=== PATIENT | female | born 2005 ===

== ENCOUNTER 2025-09-01 06:56 | Outpatient (REF) | payer BC, SELFPAY ==
--- NOTE | ~2025-09-01 | US_ITS ---
EXAMINATION: US PELVIS CLINICAL INFORMATION: Irregular bleeding for 3 weeks. IUD COMPARISON: None available. TECHNIQUE: Ultrasound of the pelvis is performed using both transabdominal and transvaginal transducers along with Doppler. Transvaginal imaging is performed due to inadequate visualization transabdominally. FINDINGS: Uterus: The uterus is anteversion flexion and measures 7 x 3 x 4 cm. Volume: 39 cc. Cervix is normal. The double wall endometrial thickness is 2 mm. No soft tissue lesions in the myometrium. Normal position of the intrauterine contraceptive device from the fundus to the body. Adnexa: The ovaries are identified with normal flow on color Doppler interrogation.. No gross solid or cystic lesion. No free fluid in the cul-de-sac. Right ovary measures 3 x 3 x 2 cm. Volume: 9 cc. Left ovary measures 4 x 2 x 2 cm. Volume: 7 cc. US/US pelvic and transvaginal IMPRESSION: Normal position of the intrauterine contraceptive device. Normal pelvic ultrasound. Electronically signed by: Chandrakant Mera MD 09/01/2025 11:33 AM [facility]
== END 2025-09-01 06:57 | disposition home or self-care (01) ==
LOC: HO.UMASIMG 06:56
PROVIDERS: Visit Provider Nurse Practitioner Women's Health
DX: Z30.431 Encounter for routine checking of intrauterine contraceptive device (principal); N92.6 Irregular menstruation, unspecified
CPT/HCPCS: 76830; 76856

== ENCOUNTER → 2025-09-01 09:53 | Outpatient (BNV) | payer BC, SELFPAY | PROVIDERS: Visit Provider Radiology Diagnostic Radiology | DX: N92.6 Irregular menstruation, unspecified (principal); Z30.431 Encounter for routine checking of intrauterine contraceptive device | CPT/HCPCS: 76830; 76856 ==